=== PATIENT | male | born 1985 | race Caucasian/White ===

== ENCOUNTER 2021-08-01 15:07 | Emergency (ER) | payer OTHER ==
[2021-08-01 16:21] LABS: HEMOGLOBIN 13.5 gm/dl (14.0-17.5); RED BLOOD COUNT 3.92 M/UL (4.20-5.50); WHITE BLOOD COUNT 2.9 K/UL (4.5-11.0)
[2021-08-01 16:42] LABS: BUN/CREATININE RATIO 14 (0-10)
== END 2021-08-01 20:45 | disposition home or self-care (01) ==
LOC: ER1 15:07
PROVIDERS: Physician Assistant Medical
DX: D61.818 Other pancytopenia (principal); D69.6 Thrombocytopenia, unspecified; D72.819 Decreased white blood cell count, unspecified; I10 Essential (primary) hypertension; F17.210 Nicotine dependence, cigarettes, uncomplicated
CPT/HCPCS: 71045; 80053; 82550; 82553; 84484; 85025; 93005; 96374; 96375; 99285; C9113; J1885

== ENCOUNTER 2021-08-30 10:54 | Emergency (ER) | payer OTHER ==
[2021-08-30 12:17] LABS: HEMOGLOBIN 14.6 gm/dl (14.0-17.5); RED BLOOD COUNT 4.14 M/UL (4.20-5.50); WHITE BLOOD COUNT 4.2 K/UL (4.5-11.0)
[2021-08-30 12:36] LABS: BUN/CREATININE RATIO 11 (0-10)
[2021-08-30] MEDS ORDERED: VISTARIL50 MG PO (16:18)
== END 2021-08-30 16:30 | disposition home or self-care (01) ==
LOC: ER1 10:54
PROVIDERS: Physician Assistant Medical
DX: R07.89 Other chest pain (principal); I10 Essential (primary) hypertension; F17.210 Nicotine dependence, cigarettes, uncomplicated
CPT/HCPCS: 71045; 80053; 82550; 82553; 84439; 84443; 84484; 85025; 85379; 93005; 96374; 99285; J1885; J2060; Q9967